=== PATIENT | female | born 1955 | race Caucasian/White ===

== ENCOUNTER 2017-01-05 20:31 | Emergency (ER) | payer OTHER ==
[~2017-01-05] VITALS: Ht 134.6 cm; Wt 41.4 kg
--- OUTSIDE RECORDS SUMMARY | ~2017-01-05 | XMS ---
Demographics + + + | Address | [address] | | | [place] [address] | + + + | Preferred Language | Unknown | + + + | Marital Status | Unknown | + + + | Uatsdin Affiliation | Unknown | + + + | Race | Unknown | + + + | Ethnic Group | Unknown | + + + Author + + + | Author | [facility] | + + + | Organization | [facility] | + + + | Address | [address] | | | [place] [address] | + + + | Phone | | + + + Care Team Providers + + + + | Care File Clerk Name | Role | Phone | + + + + Unavailable | Unavailable | + + + + PROBLEMS + + + + + + + + | Type | Condition | ICD9-CM | [id number] | Onset | Condition | SNOMED | | | | Code | Code | Dates | Status | Code | + + + + + + + + | Problem | Chronic | | M54.16 | | Active | 833581627 | | | lumbar | | | | | | | | radiculopa | | | | | | | | thy | | | | | | + + + + + + + + | Problem | Tobacco | F17.200 | | | Active | 16057800 | | | dependence | | | | | | + + + + + + + + | Problem | Seasonal | | J30.2 | | Active | 178934189 | | | allergies | | | | | | + + + + + + + + | Problem | Hyperpigme | L81.9 | | | Active | 31925052 | | | nted skin | | | | | | | | lesion | | | | | | + + + + + + + + | Assessment | Hyperpigme | L81.9 | | 02 September, | Active | 36658190 | | | nted skin | | | 2017 | | | | | lesion | | | | | | + + + + + + + + | Problem | Lumbar and | M48.9 | | | Active | | | | sacral | | | | | | | | spondyloar | | | | | | | | thritis | | | | | | + + + + + + + + | Problem | Sleep | G47.30 | | | Active | 22706745 | | | apnea | | | | | | + + + + + + + + | Problem | Thoracic | M54.6 | | | Active | 529343910 | | | spine pain | | | | | | + + + + + + + + | Problem | Chronic | | G89.4 | | Active | 141649640 | | | pain | | | | | | | | syndrome | | | | | | + + + + + + + + | Problem | Insomnia | | G47.00 | | Active | 032889127 | + + + + + + + + | Problem | Vitamin D | 268.9 | | | Active | 99796384 | | | deficiency | | | | | | | | disease | | | | | | + + + + + + + + | Problem | Thoracic | 724.1 | | | Active | 745971540 | | | spine pain | | | | | | + + + + + + + + | Problem | ASTHMA NOS | 493.90 | | | Active | 227730940 | + + + + + + + + | Problem | Grieving | 309.0 | | | Active | 15896490 | + + + + + + + + | Problem | Hypertensi | | I10 | | Active | 34913402 | | | on | | | | | | + + + + + + + + | Problem | Hyperglyce | | R73.9 | | Active | 42395048 | | | igor | | | | | | + + + + + + + + | Problem | Hyperlipid | | E78.5 | | Active | 12769058 | | | emia | | | | | | + + + + + + + + | Problem | Hypokalemi | | E87.6 | | Active | 24946379 | | | a | | | | | | + + + + + + + + | Problem | Depression | | F41.8 | | Active | 248476418 | | | with | | | | | | | | anxiety | | | | | | + + + + + + + + | Problem | Radiculopa | | M54.12 | | Active | 48121360 | | | thy, | | | | | | | | cervical | | | | | | | | region | | | | | | + + + + + + + + ALLERGIES + + + + +--------+ | Substance | Reaction | Event Type | Date | Status | + + + + +--------+ | Pravastatin | Muscle | Drug Allergy | September, | Active | | | pain/cramps | | | | + + + + +--------+ | Niacin | Flushing | Drug Allergy | September, | Active | + + + + +--------+ | Crestor | Muscle | Drug Allergy | September, | Active | | | pain/cramps | | | | + + + + +--------+ SOCIAL HISTORY No smoking Hx information available PLAN OF CARE VITAL SIGNS + + + + | Height | 53 in | 2016-09-02 | + + + + | Weight | 97.4 lbs | 2016-09-02 | + + + + | BMI | 24.38 kg/m2 | 2016-09-02 | + + + + | Temperature | 97.9 degrees Fahrenheit | 2016-09-02 | + + + + | Heart Rate | 88 /min | 2016-09-02 | + + + + | Blood pressure systolic | 152 mm Hg | 2016-09-02 | + + + + | Blood pressure diastolic | 90 mm Hg | 2016-09-02 | + + + + MEDICATIONS + + + + + + + +--------+ | Medicati | Instruct | Dosage | Frequenc | Start | End Date | Duration | Status | | on | ions | | y | Date | | | | + + + + + + + +--------+ | Duloxeti | Orally | 1 | 24h | | | 30 days | Active | | ne HCl | Once a | capsule | | | | | | | 60 MG | day | | | | | | | + + + + + + + +--------+ | Vitamin | | | | | | | Active | | D3 2000 | | | | | | | | | UNIT | | | | | | | | + + + + + + + +--------+ | BusPIRon | Orally | 1 tablet | 12h | 04 Jul, | | 30 days | Active | | e HCl 10 | BID | | | 2015 | | | | | MG | | | | | | | | + + + + + + + +--------+ | Womens | Orally | 1 tablet | 24h | | | | Active | | Multi | daily | | | | | | | + + + + + + + +--------+ | Nexium | | | | | | | Active | + + + + + + + +--------+ | Fenofibr | Orally | 1 tablet | 24h | 13 Oct, | | 30 | Active | | ate 160 | Once a | with a | | 2016 | | day(s) | | | MG | day | meal | | | | | | + + + + + + + +--------+ | Flonase | Nasally | 2 sprays | 24h | | | 30 | Active | | 50 | Once a | per | | | | day(s) | | | MCG/ACT | day | nostril | | | | | | + + + + + + + +--------+ | Calcium | Orally | 1 tablet | 8h | | | | Active | | Magnesiu | Three | with | | | | | | | m 750 | times a | meals | | | | | | | 300-300 | day | | | | | | | | MG | | | | | | | | + + + + + + + +--------+ | Acetamin | Orally | 1 | 6h | | | | Active | | ophen | every 6 | capsule | | | | | | | 500 MG | hrs | as | | | | | | | | | needed | | | | | | + + + + + + + +--------+ | Ventolin | | INHALE | | | | | Active | | HFA | | TWO | | | | | | | 108MCG/A | | PUFFS BY | | | | | | | | | MOUTH | | | | | | | | | EVERY | | | | | | | | | FOUR | | | | | | | | | HOURS | | | | | | | | | NEEDED | | | | | | + + + + + + + +--------+ | Baclofen | Orally | 1 tablet | | 02 September, | 02 October, | 30 | Active | | 10 mg | bid prn | with | | 2017 | 2017 | day(s) | | | | Muscle | food or | | | | | | | | spasms | milk | | | | | | + + + + + + + +--------+ | Losartan | Orally | 1 tablet | 24h | Oct, | | 30 days | Active | | | Once a | | | 2015 | | | | | Potassiu | day | | | | | | | | m 100 MG | | | | | | | | + + + + + + + +--------+ | Advair | Inhalati | 1 puff | 12h | May, | | 30 | Active | | Diskus | on Twice | | | 2017 | | day(s) | | | 100-50 | a day | | | | | | | | MCG/DOSE | | | | | | | | + + + + + + + +--------+ | Vitamin | Orally | 1 | 24h | | | | Active | | E 400 | Once a | capsule | | | | | | | UNIT | day | | | | | | | + + + + + + + +--------+ | Vitamin | Orally | 2 | 24h | | | 30 | Active | | B-12 | Once a | tablets | | | | day(s) | | | 1000 MCG | day | | | | | | | + + + + + + + +--------+ | Gabapent | Orally | 1 | 8h | | | | Active | | in 300 | Three | capsule | | | | | | | MG | times a | | | | | | | | | day | | | | | | | + + + + + + + +--------+ | Hair/Ski | | | | | | | Active | | n/Nails/ | | | | | | | | | Biotin | | | | | | | | + + + + + + + +--------+ | Turmeric | Orally | 2 | 24h | | | | Active | | 500 mg | daily | tab(s) | | | | | | + + + + + + + +--------+ RESULTS No Results PROCEDURES + + + + + | Procedure | Date Ordered | Related Diagnosis | Body Site | + + + + + | SHAVE TRUNK, ARMS, | September 02, 2016 | | | | LEGS 0.6-1 CM | | | | + + + + + | Est Level II | September 02, 2016 | | | | Limited | | | | + + + + + | DOC MEDS VERIFIED | September 02, 2016 | | | | W/PT OR RE | | | | + + + + + | DS[facility]RG MED/CURRENT | September 02, 2016 | | | | MED MERGE | | | | + + + + + IMMUNIZATIONS No Known Immunizations"
--- OUTSIDE RECORDS SUMMARY | ~2017-01-05 | XMS ---
Demographics + + + | Address | [address] | | | [place] [address] | + + + | Preferred Language | Unknown | + + + | Marital Status | Unknown | + + + | Tenriism Affiliation | Unknown | + + + | Race | Unknown | + + + | Ethnic Group | Unknown | + + + Author + + + | Author | [facility] | + + + | Organization | [facility] | + + + | Address | [address] | | | [place] [address] | + + + | Phone | [phone] | + + + Care Team Providers + + + + | Care Waiter/Waitress Bar Name | Role | Phone | + + + + Unavailable | Unavailable | + + + + PROBLEMS +---------+ + + +--------+ + + | Type | Condition | ICD9-CM | [id number] | Onset | Condition | SNOMED | | | | Code | Code | Dates | Status | Code | +---------+ + + +--------+ + + | Problem | Chronic | | M54.16 | | Active | 001312622 | | | lumbar | | | | | | | | radiculopa | | | | | | | | thy | | | | | | +---------+ + + +--------+ + + | Problem | Tobacco | F17.200 | | | Active | 84519358 | | | dependence | | | | | | +---------+ + + +--------+ + + | Problem | Seasonal | | J30.2 | | Active | 325269619 | | | allergies | | | | | | +---------+ + + +--------+ + + | Problem | Hyperpigme | L81.9 | | | Active | 94436611 | | | nted skin | | | | | | | | lesion | | | | | | +---------+ + + +--------+ + + | Problem | Lumbar and | M48.9 | | | Active | | | | sacral | | | | | | | | spondyloar | | | | | | | | thritis | | | | | | +---------+ + + +--------+ + + | Problem | Sleep | G47.30 | | | Active | 47836991 | | | apnea | | | | | | +---------+ + + +--------+ + + | Problem | Thoracic | M54.6 | | | Active | 438773968 | | | spine pain | | | | | | +---------+ + + +--------+ + + | Problem | Chronic | | G89.4 | | Active | 591284940 | | | pain | | | | | | | | syndrome | | | | | | +---------+ + + +--------+ + + | Problem | Insomnia | | G47.00 | | Active | 762029301 | +---------+ + + +--------+ + + | Problem | Vitamin D | 268.9 | | | Active | 10942534 | | | deficiency | | | | | | | | disease | | | | | | +---------+ + + +--------+ + + | Problem | Thoracic | 724.1 | | | Active | 299206382 | | | spine pain | | | | | | +---------+ + + +--------+ + + | Problem | ASTHMA NOS | 493.90 | | | Active | 442440432 | +---------+ + + +--------+ + + | Problem | Grieving | 309.0 | | | Active | 92903526 | +---------+ + + +--------+ + + | Problem | Hypertensi | | I10 | | Active | 80710828 | | | on | | | | | | +---------+ + + +--------+ + + | Problem | Hyperglyce | | R73.9 | | Active | 72106759 | | | igor | | | | | | +---------+ + + +--------+ + + | Problem | Hyperlipid | | E78.5 | | Active | 55084830 | | | emia | | | | | | +---------+ + + +--------+ + + | Problem | Hypokalemi | | E87.6 | | Active | 02969191 | | | a | | | | | | +---------+ + + +--------+ + + | Problem | Depression | | F41.8 | | Active | 863214958 | | | with | | | | | | | | anxiety | | | | | | +---------+ + + +--------+ + + | Problem | Radiculopa | | M54.12 | | Active | 68766157 | | | thy, | | | | | | | | cervical | | | | | | | | region | | | | | | +---------+ + + +--------+ + + ALLERGIES + + + + +--------+ | Substance | Reaction | Event Type | Date | Status | + + + + +--------+ | Pravastatin | Muscle | Drug Allergy | Dec, | Active | | | pain/cramps | | | | + + + + +--------+ | Niacin | Flushing | Drug Allergy | Dec, | Active | + + + + +--------+ | Crestor | Muscle | Drug Allergy | Dec, | Active | | | pain/cramps | | | | + + + + +--------+ SOCIAL HISTORY No smoking Hx information available PLAN OF CARE + +---------+ | Activity | Details | + +---------+ +---+ | | +---+ + + + | Follow Up | prn, 1 Year Reason:null | + + + | Pending Test | Mammogram: Screening | + + + VITAL SIGNS + + + + | Height | 53 in | 2016-12-30 | + + + + | Weight | 92.0 lbs | 2016-12-30 | + + + + | BMI | 23.02 kg/m2 | 2016-12-30 | + + + + | Heart Rate | 98 /min | 2016-12-30 | + + + + | Blood pressure systolic | 156 mm Hg | 2016-12-30 | + + + + | Blood pressure diastolic | 85 mm Hg | 2016-12-30 | + + + + MEDICATIONS + [...] | 1 tablet | 24h | 13 Carlos, | | 30 | Active | | [...] | | | Active | | D3 1999 | | | | | | | | | UNIT | | | | | | | | + + + + + + + +--------+ | Baclofen | Orally | 1 tablet | | 01 September, | 28 Mar, | 30 | Active | | 10 [...] | 1 tablet | 24h | 13 Carlos, | | 30 days | Active | | | Once a | | | 2016 | | | | | Potassiu | day | | | | | | | | m 100 MG | | | | | | | | + + + + + + + +--------+ | BusPIRon | Orally | 1 tablet | 12h | 04 Jul, | | 30 days | Active | | e HCl 10 | BID | | | 2014 | | | | | MG | [...] Inhalati | 1 puff | 12h | 19 May, | | 30 | Active | [...] | + + + + + | Preventive Est ages | Dec 30, 2016 | | | | 40-64 | | | | + + + + + IMMUNIZATIONS No Known Immunizations"
--- OUTSIDE RECORDS SUMMARY | ~2017-01-05 | XMS ---
Demographics + + + | Address | [address] | | | [place] [address] | + + + | Preferred Language | Unknown | + + + | Marital Status | Unknown | + + + | Advent Affiliation | Unknown | + + + | Race | Unknown | + + + | Ethnic Group | Unknown | + + + Author + + + | Author | [facility] | + + + | Organization | [facility] | + + + | Address | [address] | | | [place] [address] | + + + | Phone | | + + + Care Team Providers + + + + | Care Mechanical Service Representative Name | Role | Phone | + + + + Unavailable | Unavailable | + + + + PROBLEMS +---------+ + + +--------+ + + | Type | Condition | ICD9-CM | [id number] | Onset | Condition | SNOMED | | | | Code | Code | Dates | Status | Code | +---------+ + + +--------+ + + | Problem | Chronic | | M54.16 | | Active | 879889311 | | | lumbar | | | | | | | | radiculopa | | | | | | | | thy | | | | | | +---------+ + + +--------+ + + | Problem | Tobacco | F17.200 | | | Active | 65319575 | | | dependence | | | | | | +---------+ + + +--------+ + + | Problem | Seasonal | | J30.2 | | Active | 036740634 | | | allergies | | | | | | +---------+ + + +--------+ + + | Problem | Hyperpigme | L81.9 | | | Active | 38377177 | | | nted skin | | [...] | G47.30 | | | Active | 61401721 | | | apnea | | | | | | +---------+ + + +--------+ + + | Problem | Thoracic | M54.6 | | | Active | 995812925 | | | spine pain | | | | | | +---------+ + + +--------+ + + | Problem | Chronic | | G89.4 | | Active | 536057425 | | | pain | | | | | | | | syndrome | | | | | | +---------+ + + +--------+ + + | Problem | Insomnia | | G47.00 | | Active | 973583136 | +---------+ + + +--------+ + + | Problem | Vitamin D | 268.9 | | | Active | 42786682 | | | deficiency | | | | | | | | disease | | | | | | +---------+ + + +--------+ + + | Problem | Thoracic | 724.1 | | | Active | 392269316 | | | spine pain | | | | | | +---------+ + + +--------+ + + | Problem | ASTHMA NOS | 493.90 | | | Active | 262745161 | +---------+ + + +--------+ + + | Problem | Grieving | 309.0 | | | Active | 06827096 | +---------+ + + +--------+ + + | Problem | Hypertensi | | I10 | | Active | 86932203 | | | on | | | | | | +---------+ + + +--------+ + + | Problem | Hyperglyce | | R73.9 | | Active | 02344652 | | | igor | | | | | | +---------+ + + +--------+ + + | Problem | Hyperlipid | | E78.5 | | Active | 34571549 | | | emia | | | | | | +---------+ + + +--------+ + + | Problem | Hypokalemi | | E87.6 | | Active | 73239312 | | | a | | | | | | +---------+ + + +--------+ + + | Problem | Depression | | F41.8 | | Active | 689848094 | | | with | | | | | | | | anxiety | | | | | | +---------+ + + +--------+ + + | Problem | Radiculopa | | M54.12 | | Active | 62272194 | | | thy, | | | | | | | | cervical | | | | | | | | region | | | | | | +---------+ + + +--------+ + + ALLERGIES Unknown Allergies SOCIAL HISTORY No smoking Hx information available PLAN OF CARE VITAL SIGNS MEDICATIONS Unknown Medications RESULTS No Results PROCEDURES No Known procedures IMMUNIZATIONS No Known Immunizations"
--- OUTSIDE RECORDS SUMMARY | ~2017-01-05 | XMS ---
Demographics + + + | Address | [address] | | | [place] [address] | + + + | Preferred Language | Unknown | + + + | Marital Status | Unknown | + + + | Buddhism Affiliation | Unknown | + + + | Race | Unknown | + + + | Ethnic Group | Unknown | + + + Author + + + | Author | [facility] | + + + | Organization | [facility] | + + + | Address | [address] | | | [place] [address] | + + + | Phone | | + + + Care Team Providers + + + + | Care Car Varnisher Name | Role | Phone | + + + + Unavailable | Unavailable | + + + + PROBLEMS +---------+ + + +--------+ + + | Type | Condition | ICD9-CM | [id number] | Onset | Condition | SNOMED | | | | Code | Code | Dates | Status | Code | +---------+ + + +--------+ + + | Problem | Chronic | | M54.16 | | Active | 826821178 | | | lumbar | | | | | | | | radiculopa | | | | | | | | thy | | | | | | +---------+ + + +--------+ + + | Problem | Tobacco | F17.200 | | | Active | 10823480 | | | dependence | | | | | | +---------+ + + +--------+ + + | Problem | Seasonal | | J30.2 | | Active | 821609424 | | | allergies | | | | | | +---------+ + + +--------+ + + | Problem | Hyperpigme | L81.9 | | | Active | 67658271 | | | nted skin | | [...] | G47.30 | | | Active | 56742659 | | | apnea | | | | | | +---------+ + + +--------+ + + | Problem | Thoracic | M54.6 | | | Active | 706441062 | | | spine pain | | | | | | +---------+ + + +--------+ + + | Problem | Chronic | | G89.4 | | Active | 782075940 | | | pain | | | | | | | | syndrome | | | | | | +---------+ + + +--------+ + + | Problem | Insomnia | | G47.00 | | Active | 184767755 | +---------+ + + +--------+ + + | Problem | Vitamin D | 268.9 | | | Active | 66532855 | | | deficiency | | | | | | | | disease | | | | | | +---------+ + + +--------+ + + | Problem | Thoracic | 724.1 | | | Active | 122904494 | | | spine pain | | | | | | +---------+ + + +--------+ + + | Problem | ASTHMA NOS | 493.90 | | | Active | 170642360 | +---------+ + + +--------+ + + | Problem | Grieving | 309.0 | | | Active | 29992002 | +---------+ + + +--------+ + + | Problem | Hypertensi | | I10 | | Active | 13695335 | | | on | | | | | | +---------+ + + +--------+ + + | Problem | Hyperglyce | | R73.9 | | Active | 64107216 | | | igor | | | | | | +---------+ + + +--------+ + + | Problem | Hyperlipid | | E78.5 | | Active | 88483794 | | | emia | | | | | | +---------+ + + +--------+ + + | Problem | Hypokalemi | | E87.6 | | Active | 00446463 | | | a | | | | | | +---------+ + + +--------+ + + | Problem | Depression | | F41.8 | | Active | 186100728 | | | with | | | | | | | | anxiety | | | | | | +---------+ + + +--------+ + + | Problem | Radiculopa | | M54.12 | | Active | 20257242 | | | thy, | | | [...] Pravastatin | Muscle | Drug Allergy | Oct, | Active | | | pain/cramps | | | | + + + + +--------+ | Niacin | Flushing | Drug Allergy | Oct, | Active | + + + + +--------+ | Crestor | Muscle | Drug Allergy | Oct, | Active | | | pain/cramps | | | | + + + + +--------+ SOCIAL HISTORY No smoking Hx information available PLAN OF CARE + +---------+ | Activity | Details | + +---------+ +---+ | | +---+ + + + | Follow Up | 6 Months Reason:null | + + + | Pending Test | CBC, Platelet; No Differential | + + + | Pending Test | Comp. Metabolic Panel (14) | + + + | Pending Test | Lipid Panel | + + + | Future/Pending Procedure | Shaving of Epidermal or Dermal Lesions | + + + VITAL SIGNS + + + + | Height | 53 in | 2016-10-03 | + + + + | Weight | 96.4 lbs | 2016-10-03 | + + + + | BMI | 24.13 kg/m2 | 2016-10-03 | + + + + | Temperature | 97.9 degrees Fahrenheit | 2016-10-03 | + + + + | Heart Rate | 78 /min | 2016-10-03 | + + + + | Blood pressure systolic | 121 mm Hg | 2016-10-03 | + + + + | Blood pressure diastolic | 79 mm Hg | 2016-10-03 | + + + + MEDICATIONS + [...] Orally | 1 tablet | 12h | Jul, | | 30 days | Active [...] tablet | | 01 September, | 28 Nov, | 30 | Active | | 10 mg | bid prn | with | | 2016 | 2016 | day(s) | | | | Muscle [...] + + + + | Est Level IV | October 03, 2016 | | | | Extended | | | | + + + + + | [facility] MED/CURRENT | October 03, 2016 | | | | MED MERGE | | | | + + + + + | DOC MEDS VERIFIED | October 03, 2016 | | | | W/PT OR RE | | | | + + + + + IMMUNIZATIONS No Known Immunizations"
--- OUTSIDE RECORDS SUMMARY | ~2017-01-05 | XMS ---
Demographics + + + | Address | [address] | | | [place] [address] | + + + | Preferred Language | Unknown | + + + | Marital Status | Unknown | + + + | Rastafari Affiliation | Unknown | + + + | Race | Unknown | + + + | Ethnic Group | Unknown | + + + Author + + + | Author | [facility] | + + + | Organization | [facility] | + + + | Address | [address] | | | [place] [address] | + + + | Phone | | + + + Care Team Providers + + + + | Care Dress Designer Name | Role | Phone | + + + + Unavailable | Unavailable | + + + + PROBLEMS +---------+ + + +--------+ + + | Type | Condition | ICD9-CM | [id number] | Onset | Condition | SNOMED | | | | Code | Code | Dates | Status | Code | +---------+ + + +--------+ + + | Problem | Chronic | | M54.16 | | Active | 930756425 | | | lumbar | | | | | | | | radiculopa | | | | | | | | thy | | | | | | +---------+ + + +--------+ + + | Problem | Tobacco | F17.200 | | | Active | 05560656 | | | dependence | | | | | | +---------+ + + +--------+ + + | Problem | Seasonal | | J30.2 | | Active | 844656824 | | | allergies | | | | | | +---------+ + + +--------+ + + | Problem | Hyperpigme | L81.9 | | | Active | 83450019 | | | nted skin | | [...] | G47.30 | | | Active | 40089138 | | | apnea | | | | | | +---------+ + + +--------+ + + | Problem | Thoracic | M54.6 | | | Active | 540619174 | | | spine pain | | | | | | +---------+ + + +--------+ + + | Problem | Chronic | | G89.4 | | Active | 472269406 | | | pain | | | | | | | | syndrome | | | | | | +---------+ + + +--------+ + + | Problem | Insomnia | | G47.00 | | Active | 785334371 | +---------+ + + +--------+ + + | Problem | Vitamin D | 268.9 | | | Active | 46012658 | | | deficiency | | | | | | | | disease | | | | | | +---------+ + + +--------+ + + | Problem | Thoracic | 724.1 | | | Active | 185401501 | | | spine pain | | | | | | +---------+ + + +--------+ + + | Problem | ASTHMA NOS | 493.90 | | | Active | 224685782 | +---------+ + + +--------+ + + | Problem | Grieving | 309.0 | | | Active | 32285857 | +---------+ + + +--------+ + + | Problem | Hypertensi | | I10 | | Active | 83049957 | | | on | | | | | | +---------+ + + +--------+ + + | Problem | Hyperglyce | | R73.9 | | Active | 85361372 | | | igor | | | | | | +---------+ + + +--------+ + + | Problem | Hyperlipid | | E78.5 | | Active | 17785454 | | | emia | | | | | | +---------+ + + +--------+ + + | Problem | Hypokalemi | | E87.6 | | Active | 79060338 | | | a | | | | | | +---------+ + + +--------+ + + | Problem | Depression | | F41.8 | | Active | 151999557 | | | with | | | | | | | | anxiety | | | | | | +---------+ + + +--------+ + + | Problem | Radiculopa | | M54.12 | | Active | 55366425 | | | thy, | | | [...]
[~2017-01-05 20:31] MED LIST: ALPRAZOLAM0.5 MG PO; APPLE CIDER VI300 MG PO; BACLOFEN10 MG PO; BUSPIRONE HCL10 MG PO; CALCIUM 600 +1 EA16 PO; CALCIUM-MAGNES1 EAC4 PO; CETIRIZINE HCL10 MG PO; CINNAMON500 MG PO; CYCLOBENZAPRINE10 MG PO; CYCLOBENZAPRINE5 MG PO; DULOXETINE HCL60 MG PO; FENOFIBRATE160 MG PO; FISH OIL 1,0001 EAC3 PO; FLUOXETINE HCL20 MG PO; FLUTICASONE P15.8 ML NS; GELATIN650 MG PO; HAIR, SKIN & N1 EACH PO; K-TAB10 MEQ PO; LISINOPRIL-HCT1 EACH PO; LOSARTAN POTASS50 MG PO; MAGNESIUM CITR100 MG PO; MELOXICAM15 MG PO; MSM1000 MG PO; NEURONTIN300 MG PO; NEXIUM40 MG PO; OMEGA 3 1,0001 EACH PO; ONE DAILY FOR1 EACH PO; POTASSIUM GLUC500 MG PO; PROVENTIL HFA6.7 GM INH; ROBAXIN500 MG PO; ULTRAM50 MG PO; VITAMIN B122500 MC1 PO; VITAMIN D32000 UNIT PO; VITAMIN E400 UNI1 PO
[2017-01-05] MEDS ORDERED: ZOFRAN4 MG PO (20:59)
[2017-01-05] MEDS ORDERED: PAIN RELIEF325 MG PO (20:59)
[2017-01-05] MEDS ORDERED: AUGMENTIN 875-1 EACH PO (21:24)
[2017-01-05] MEDS ORDERED: TRAMADOL HCL50 MG PO (21:24)
== END 2017-01-05 21:55 | disposition home or self-care (01) ==
LOC: ED 20:31
DX: S61.451A Open bite of right hand, initial encounter (principal); I10 Essential (primary) hypertension; F17.200 Nicotine dependence, unspecified, uncomplicated; Z90.710 Acquired absence of both cervix and uterus; Z90.49 Acquired absence of other specified parts of digestive tract; Z88.6 Allergy status to analgesic agent; Z88.8 Allergy status to other drugs, medicaments and biological substances; Z79.899 Other long term (current) drug therapy; Z79.891 Long term (current) use of opiate analgesic; Z79.51 Long term (current) use of inhaled steroids; W54.0XXA Bitten by dog, initial encounter
CPT/HCPCS: 90471; 90715; 99283

== ENCOUNTER 2024-05-05 15:50 | Emergency (ER) | payer MEDICARE, MEDICAID ==
[~2024-05-05] VITALS: Ht 134.6 cm; Wt 40.4 kg
[~2024-05-05 15:50] MED LIST changes: +ATORVASTATIN CA10 MG PO; +AUGMENTIN 875-1 EACH PO; +CEPHALEXIN500 M1 PO; +CIPROFLOXACIN2.5 M1 OP; +FLUTICASONE-SA1 EAC3 INH; +FLUTICASONE-SA1 EAC4 INH; +HYDROCODON-ACE1 EA10 PO; +MACROBID 100 M100 MG PO; +PAIN RELIEF325 MG PO; +TRAMADOL HCL50 MG PO; +ZOFRAN4 MG PO
[2024-05-05 17:43] LABS: BASOPHILS 0.6 % (0-2); EOSINOPHILS 1.1 % (0-6); HEMOGLOBIN 14.3 g/dL (12.0-18.0); LYMPHOCYTES 38.2 % (24-44); MCH 30.2 (27-36); MCHC 34.2 g/dl (30-36); MCV 88.5 fl (81-99); MONOCYTES 4.2 % (0-12); NEUTROPHILS 55.9 % (39-80); PLATELET COUNT 348 K/uL (140-440); RBC 4.74 M/ul (4.3-5.7); RDW 14.1 (10.5-15.0)
[2024-05-05] MEDS ORDERED: HYDROmorphone HCL 1 MG/ML SYR IV ONE (17:45)
[2024-05-05] MEDS ORDERED: ondansetron HCL 4 MG/2 ML VIAL IV ONE (17:45)
[2024-05-05] MEDS ORDERED: PANTOPRAZOLE SODIUM 40 MG/10 ML VIAL IV ONE (17:45)
[2024-05-05] MEDS ORDERED: SODIUM CHLORIDE 0.9% 1,000 ML IV ONE (17:45)
[2024-05-05 17:59] LABS: ALBUMIN 3.7 g/dL (3.4-5.0); ALBUMIN/GLOBULIN RATIO 1.03 (1.1-2.4); ANION GAP 10.7 (7-21); BILIRUBIN, TOTAL 0.3 ng/dL (0.2-1.0); BUN/CREATININE RATIO 13.33 (6.0-28.6); CALCIUM 9.6 mg/dL (8.5-10.1); CREATININE, SERUM 0.9 mg/dL (0.55-1.02); POTASSIUM 3.7 mmol/L (3.5-5.1); PROTEIN, TOTAL 7.3 g/dL (6.4-8.2)
[2024-05-05] MEDS ORDERED: hydrALAZINE HCL 20 MG/ML VIAL IV ONE (18:00)
[2024-05-05 18:23] LABS: BILIRUBIN, URINE NEGATIVE (negative); BLOOD/HGB, URINE TRACE-I (Negative); KETONE, URINE NEGATIVE (Negative); LEUK ESTERASE, URINE NEGATIVE (negative); NITRITE, URINE NEGATIVE (negative)
[2024-05-05 18:28] LABS: RED BLOOD CELLS, URINE 0-1 /hpf (0-5); WHITE BLOOD CELLS, URINE 0-1 /HPF (0-5)
[2024-05-05 18:29] LABS: BACTERIA, URINE RARE /hpf (negative); CASTS, URINE NONE SEEN \\lpf; COLLECTION TYPE, URINE CLEAN CATCH; CRYSTALS, URINE NONE SEEN (0-1+); EPITHELIAL CELLS, URINE NONE SEEN /lpf (0-1+); REFLEX CULTURE, URINE No (No)
[2024-05-05] MEDS ORDERED: diphenhydrAMINE HCL 50 MG/ML VIAL IV ONE (19:30)
[2024-05-05 20:00] VITALS: BP 167/91
[2024-05-06] MEDS ORDERED: ONDANSETRON ODT4 MG SL (14:47)
[2024-05-06] MEDS ORDERED: TRAMADOL HCL50 MG PO (14:47)
== END 2024-05-05 20:00 | disposition home or self-care (01) ==
LOC: ED 15:50
PROVIDERS: Emergency Medicine
DX: R10.11 Right upper quadrant pain (principal); N20.0 Calculus of kidney; I10 Essential (primary) hypertension; F17.200 Nicotine dependence, unspecified, uncomplicated; Z88.8 Allergy status to other drugs, medicaments and biological substances; Z79.899 Other long term (current) drug therapy
CPT/HCPCS: 36415; 74177; 80053; 81001; 83690; 85025; 96375; 99284-25; J0360; J1171; J1200; J2405; J2470; J7030; Q9967

== ENCOUNTER 2024-05-06 21:01 | Emergency (ER) | payer MEDICARE, MEDICAID ==
[~2024-05-06] VITALS: Ht 134.6 cm; Wt 40.4 kg
[~2024-05-06 21:01] MED LIST changes: +ONDANSETRON ODT4 MG SL
[2024-05-06 22:35] VITALS: BP 160/92
== END 2024-05-06 22:46 | disposition home or self-care (01) ==
LOC: ED 21:01
DX: I10 Essential (primary) hypertension (principal); F17.200 Nicotine dependence, unspecified, uncomplicated; Z88.2 Allergy status to sulfonamides; Z88.8 Allergy status to other drugs, medicaments and biological substances; Z79.899 Other long term (current) drug therapy
CPT/HCPCS: 99283

== ENCOUNTER 2024-05-07 12:59 | Emergency (ER) | payer MEDICARE, MEDICAID ==
[~2024-05-07] VITALS: Ht 134.6 cm; Wt 39.5 kg
[2024-05-07 13:33] LABS: BASOPHILS 0.7 % (0-2); EOSINOPHILS 1.4 % (0-6); HEMATOCRIT 41.2 % (35.0-50.0); HEMOGLOBIN 13.9 g/dL (12.0-18.0); LYMPHOCYTES 35.1 % (24-44); MCH 30.4 (27-36); MCHC 33.8 g/dl (30-36); MCV 89.8 fl (81-99); MONOCYTES 4.4 % (0-12); NEUTROPHILS 58.4 % (39-80); PLATELET COUNT 337 K/uL (140-440); RBC 4.59 M/ul (4.3-5.7); RDW 14.3 (10.5-15.0)
[2024-05-07 13:41] LABS: INR 0.9 (0.80-1.30); PROTIME 12.1 Sec (11.2-14.2)
[2024-05-07 13:43] LABS: PARTIAL THROMBOPLASTIN TIME 29.1 Sec (22.9-41.3)
[2024-05-07 13:59] LABS: ALBUMIN 3.7 g/dL (3.4-5.0); ALBUMIN/GLOBULIN RATIO 1.06 (1.1-2.4); ALCOHOL, MEDICAL <3 ng/dL (<3); ALKALINE PHOSPHATASE 87 U/L (46-116); ALT (SGPT) 14 U/L (14-59); ANION GAP 14.4 (7-21); AST (SGOT) 16 U/L (15-37); BILIRUBIN, TOTAL 0.3 ng/dL (0.2-1.0); CALCIUM 9.1 mg/dL (8.5-10.1); CARBON DIOXIDE 26 mmol/L (21-32); CHLORIDE 102 mmol/L (98-107); CREATININE, SERUM 0.71 mg/dL (0.55-1.02); GLOMERULAR FILTRATION RATE,EST 91 mL/min (>60); POTASSIUM 3.4 mmol/L (3.5-5.1); PROTEIN, TOTAL 7.2 g/dL (6.4-8.2); UREA NITROGEN 12 mg/dL (7-18)
[2024-05-07 14:01] LABS: BILIRUBIN, URINE NEGATIVE (negative); BLOOD/HGB, URINE NEGATIVE (Negative); KETONE, URINE NEGATIVE (Negative); LEUK ESTERASE, URINE NEGATIVE (negative); NITRITE, URINE NEGATIVE (negative)
[2024-05-07] MEDS ORDERED: hydrALAZINE HCL 20 MG/ML VIAL IV ONE (14:15)
[2024-05-07 14:17] LABS: AMPHETAMINES, URINE NEGATIVE (NEGATIVE); BARBITURATES, URINE NEGATIVE (NEGATIVE); BENZODIAZEPINE, URINE NEGATIVE (NEGATIVE); BUPRENORPHINE, URINE NEGATIVE (NEGATIVE); CANNABINOID, URINE POSITIVE (NEGATIVE); COCAINE, URINE NEGATIVE (NEGATIVE); ECSTASY, URINE NEGATIVE (NEGATIVE); FENTANYL, URINE NEGATIVE (NEGATIVE); METHADONE, URINE NEGATIVE (NEGATIVE); OPIATES, URINE NEGATIVE (NEGATIVE); OXYCODONE, URINE NEGATIVE (NEGATIVE); PHENCYCLIDINE, URINE NEGATIVE (NEGATIVE)
[2024-05-07 15:35] VITALS: BP 163/86
--- NOTE | 2024-05-09 18:20 | EKG ---
[facility] [address] [facility] [address] [place] [address] Signed Normal sinus rhythm Nonspecific T wave abnormality Abnormal ECG When compared with ECG of 06-MAY-2024 12:05, Nonspecific T wave abnormality, worse in Anterior leads Confirmed by Kar Rivas MD ([id number]) on 05/09/2024 6:20:26 PM Electronically Signed By: KAR RIVAS MD 05/09/24 1820 PATIENT NAME: JESUJAILENE Electrocardiogram DATE OF : 51 PHYSICIAN: KAR RIVAS MD REPORT #: [id number] REPORT IS CONFIDENTIAL AND NOT TO BE RELEASED WITHOUT AUTHORIZATION
== END 2024-05-07 15:35 | disposition home or self-care (01) ==
LOC: ED 12:59
PROVIDERS: Emergency Medicine
DX: R40.4 Transient alteration of awareness (principal); I16.0 Hypertensive urgency; I10 Essential (primary) hypertension; F12.90 Cannabis use, unspecified, uncomplicated; F17.200 Nicotine dependence, unspecified, uncomplicated; Z88.2 Allergy status to sulfonamides; Z88.8 Allergy status to other drugs, medicaments and biological substances; Z79.899 Other long term (current) drug therapy
CPT/HCPCS: 36415; 70450; 70496; 70498; 71045; 74177; 80053; 80307; 81003; 83690; 84443; 84484; 85025; 85610; 85730; 93005; 93010; 99285-25; G0480; J0360; Q9967

== ENCOUNTER 2024-05-12 11:50 | Emergency (ER) | payer MEDICARE, MEDICAID ==
[~2024-05-12] VITALS: Ht 134.6 cm; Wt 39.9 kg
[2024-05-12 14:06] LABS: BASOPHILS 0.6 % (0-2); EOSINOPHILS 0.4 % (0-6); HEMATOCRIT 40.7 % (35.0-50.0); LYMPHOCYTES 27.2 % (24-44); MCH 30.1 (27-36); MCHC 34.3 g/dl (30-36); MCV 87.9 fl (81-99); MONOCYTES 4.1 % (0-12); NEUTROPHILS 67.7 % (39-80); PLATELET COUNT 355 K/uL (140-440); RBC 4.63 M/ul (4.3-5.7)
[2024-05-12 14:21] LABS: ALBUMIN 3.7 g/dL (3.4-5.0); ALBUMIN/GLOBULIN RATIO 1.03 (1.1-2.4); ANION GAP 11.5 (7-21); BILIRUBIN, TOTAL 0.3 ng/dL (0.2-1.0); BUN/CREATININE RATIO 17.91 (6.0-28.6); CREATININE, SERUM 0.67 mg/dL (0.55-1.02); POTASSIUM 3.5 mmol/L (3.5-5.1); PROTEIN, TOTAL 7.3 g/dL (6.4-8.2)
[2024-05-12 15:08] VITALS: BP 136/66
== END 2024-05-12 15:04 | disposition home or self-care (01) ==
LOC: ED 11:50
PROVIDERS: Emergency Medicine
DX: K62.5 Hemorrhage of anus and rectum (principal); K64.4 Residual hemorrhoidal skin tags; I10 Essential (primary) hypertension; F17.200 Nicotine dependence, unspecified, uncomplicated; Z88.6 Allergy status to analgesic agent; Z88.8 Allergy status to other drugs, medicaments and biological substances; Z79.899 Other long term (current) drug therapy; Z79.51 Long term (current) use of inhaled steroids
CPT/HCPCS: 36415; 80053; 83690; 85025; 99283

== ENCOUNTER 2024-11-24 04:38 | Emergency (ER) | payer MEDICARE ==
[~2024-11-24] VITALS: Ht 134.6 cm; Wt 41.0 kg
[2024-11-24 05:21] LABS: BASOPHILS 0.6 % (0.1-1.2); EOSINOPHILS 2.3 % (0.7-5.8); LYMPHOCYTES 40.7 % (19.3-51.7); MCH 31.5 PG (25.6-32.2); MCHC 33.0 g/dL (32.2-35.5); MCV 95.3 fL (79.4-94.8); MONOCYTES 5.8 % (4.7-12.5); NEUTROPHILS 50.4 % (34.0-71.1); RBC 4.64 M/uL (3.93-5.22)
[2024-11-24 05:23] LABS: BLOOD/HGB, URINE MODERATE (Negative); KETONE, URINE NEGATIVE (Negative); LEUK ESTERASE, URINE NEGATIVE (negative); NITRITE, URINE NEGATIVE (negative)
[2024-11-24 05:26] LABS: EPITHELIAL CELLS, URINE SQUAMOUS 1+ /lpf (0-1+)
[2024-11-24 05:27] LABS: BACTERIA, URINE RARE /hpf (negative); CASTS, URINE NONE SEEN \\lpf; CRYSTALS, URINE NONE SEEN (0-1+); REFLEX CULTURE, URINE No (No)
[2024-11-24 05:38] LABS: AMPHETAMINES, URINE NEGATIVE (NEGATIVE); BARBITURATES, URINE NEGATIVE (NEGATIVE); BENZODIAZEPINE, URINE NEGATIVE (NEGATIVE); CANNABINOID, URINE POSITIVE (NEGATIVE); COCAINE, URINE NEGATIVE (NEGATIVE); ECSTASY, URINE NEGATIVE (NEGATIVE); FENTANYL, URINE NEGATIVE (NEGATIVE); METHADONE, URINE NEGATIVE (NEGATIVE); OPIATES, URINE NEGATIVE (NEGATIVE); OXYCODONE, URINE NEGATIVE (NEGATIVE); PHENCYCLIDINE, URINE NEGATIVE (NEGATIVE)
[2024-11-24 05:53] LABS: ALCOHOL, MEDICAL <3 ng/dL (<3); ALT (SGPT) 12 U/L (14-59); AST (SGOT) 15 U/L (15-37); GLOMERULAR FILTRATION RATE,EST 78 mL/min (>60); PROTEIN, TOTAL 7.4 g/dL (6.4-8.2); TSH, 3RD GENERATION 1.662 uIU/mL (0.358-3.740); UREA NITROGEN 15 mg/dL (7-18)
[2024-11-24 06:49] VITALS: BP 130/58
== END 2024-11-24 06:50 | disposition home or self-care (01) ==
LOC: ED 04:38
PROVIDERS: Emergency Medicine
DX: M54.9 Dorsalgia, unspecified (principal); M79.606 Pain in leg, unspecified; I10 Essential (primary) hypertension; F17.200 Nicotine dependence, unspecified, uncomplicated; Z79.51 Long term (current) use of inhaled steroids; Z79.899 Other long term (current) drug therapy; Z88.6 Allergy status to analgesic agent; Z88.8 Allergy status to other drugs, medicaments and biological substances
CPT/HCPCS: 36415; 70450; 80053; 80307; 81001; 84443; 85025; 99285-25; G0480